=== PATIENT | female | born 1960 | race Caucasian/White ===

== ENCOUNTER → 2016-12-28 | Outpatient (CLI) | payer OTHER | END | disposition home or self-care (01) | LOC: RAD 12:36 | DX: R06.02 Shortness of breath (principal); R07.9 Chest pain, unspecified; R07.81 Pleurodynia; M54.9 Dorsalgia, unspecified; C53.9 Malignant neoplasm of cervix uteri, unspecified; Z87.891 Personal history of nicotine dependence ==

== ENCOUNTER → 2017-05-16 | Day surgery (SDC) | payer OTHER ==
[~2017-05-16] VITALS: Ht 165.1 cm; Wt 67.1 kg
[~2017-05-16] MED LIST: MULTIVITAMINS1 EAC5 PO
--- NOTE | ~2017-05-16 | O ---
[place], [place] OPERATIVE NOTE NAME: ESTRELLITACRISTHIAN UNIT #: [id number] ROOM: DOCTOR: BRETT HOUSER MD BIRTHDATE: [birth year] DOS: 05/16/2017 GASTROENDOSCOPIC REPORT. INDICATIONS: A 57-year-old patient who has presented with chief complaint of colonic screening, undergoing the investigation. The patient with a lung nodule which is under workup for etiology. FAMILY HISTORY: Noncontributory. PAST MEDICAL HISTORY: Anemia, on iron supplementation. PAST SURGICAL HISTORY: Unremarkable. FAMILY HISTORY: Noncontributory. ALLERGIES: CODEINE. PROCEDURE: Today's procedure part of investigation is colonoscopy plus photographic series. PREMEDICATION: Versed and Diprivan. SCOPE: Olympus folding colonoscope 10L video. REPORT: After putting the patient in the left lateral position and after application of lubricant to rectal pouch and digital examination, scope was introduced. Thereafter, under direct visualization, I advanced through the length of colon without difficulty. Base of the cecum explored, appendiceal orifice identified, and ileocecal valve was defined. Diverticulosis of moderate degree in the left side of the colon appreciated. Otherwise, no other acute pathology was found. Air was suctioned out and extubated, tolerated procedure well. IMPRESSION: Diverticulosis; lung nodules, under investigation. PLAN AND DISCUSSION: High fiber diet was recommended, activity Ad kelsie. Followup as an outpatient. Thank you very much again for your kind referral. [place], [place] OPERATIVE NOTE NAME: CRISTHIAN HARO UNIT #: [id number] ROOM: DOCTOR: BRETT HOUSER MD BIRTHDATE: [birth year] BRETT HOUSER MD CM:OPRECORD:OPERATIVE NOTE [id number] LOLA HOUSER MD 05/16/17 1344 interface
[2017-05-16 09:25] VITALS: BP 135/64
[2017-05-16 10:30] VITALS: BP 113/59
[2017-05-16 10:45] VITALS: BP 120/72
[2017-05-16 10:59] VITALS: BP 132/75
== END | disposition home or self-care (01) ==
LOC: SDC 05-10 13:15
DX: Z12.11 Encounter for screening for malignant neoplasm of colon (principal); D64.9 Anemia, unspecified; K57.30 Diverticulosis of large intestine without perforation or abscess without bleeding; R91.8 Other nonspecific abnormal finding of lung field; F41.9 Anxiety disorder, unspecified; F32.9 Major depressive disorder, single episode, unspecified; Z85.41 Personal history of malignant neoplasm of cervix uteri; Z98.890 Other specified postprocedural states; Z88.8 Allergy status to other drugs, medicaments and biological substances

== ENCOUNTER → 2017-11-14 | Outpatient (CLI) | payer OTHER ==
[2017-11-14 12:36] LABS: HEMATOCRIT 37.4 % (37.0-47.0); HEMOGLOBIN 13.2 g/dl (12.0-16.0); MEAN CORPUSCULAR HGB 32.8 pg (27.0-31.0); MEAN CORPUSCULAR HGB CONC 35.3 g/dl (33.0-37.0); MEAN PLATELET VOLUME 9.6 fl (9.6-12.3); RED BLOOD COUNT 4.02 10*6/uL (4.10-5.10); RED CELL DISTRI WIDTH 12.6 % (0-14.5); WHITE BLOOD COUNT 4.2 10*3/uL (4.8-10.8)
[2017-11-14 13:03] LABS: ALBUMIN 3.9 gm/dl (3.1-4.5); ALKALINE PHOSPHATASE 91 U/L (45-117); BUN 23 mg/dl (7-24); CHLORIDE 108 mmol/L (98-107); CHOLESTEROL 181 mg/dL (<200); CREATININE 0.94 mg/dL (0.55-1.02); HDL CHOLESTEROL 76 mg/dl (40-60); LDL CHOLESTEROL 59 mg/dL (9-159); POTASSIUM 3.5 mmol/L (3.5-5.1); SGOT/AST 19 IU/L (3-35); SGPT/ALT 22 U/L (12-78); SODIUM 141 mmol/L (136-145); TOTAL PROTEIN 7.3 gm/dL (6.4-8.2); TRIGLYCERIDES 230 mg/dl (<150); VLDL CHOLESTEROL 46 mg/dL (6-40)
[2017-11-14 13:49] LABS: VITAMIN D, 25-HYDROXY 21.6 ng/mL (30-100)
== END | disposition home or self-care (01) ==
LOC: LAB 12:12
PROVIDERS: Family Medicine
DX: J44.9 Chronic obstructive pulmonary disease, unspecified (principal); E55.9 Vitamin D deficiency, unspecified; R79.89 Other specified abnormal findings of blood chemistry; Z87.891 Personal history of nicotine dependence

== ENCOUNTER → 2017-12-25 | Outpatient (CLI) | payer OTHER ==
[2017-12-25 14:54] LABS: HEMATOCRIT 36.7 % (37.0-47.0); HEMOGLOBIN 12.6 g/dl (12.0-16.0); MEAN CELL VOLUME 95.1 fl (81.0-99.0); MEAN CORPUSCULAR HGB 32.6 pg (27.0-31.0); MEAN CORPUSCULAR HGB CONC 34.3 g/dl (33.0-37.0); MEAN PLATELET VOLUME 10.1 fl (9.6-12.3); RED BLOOD COUNT 3.86 10*6/uL (4.10-5.10); RED CELL DISTRI WIDTH 12.9 % (0-14.5)
[2017-12-25 15:18] LABS: ALBUMIN 4.1 gm/dl (3.1-4.5); ALKALINE PHOSPHATASE 92 U/L (45-117); BUN 13 mg/dl (7-24); CHLORIDE 108 mmol/L (98-107); CREATININE 0.98 mg/dL (0.55-1.02); SGOT/AST 18 IU/L (3-35); SGPT/ALT 14 U/L (12-78); SODIUM 141 mmol/L (136-145); TOTAL PROTEIN 7.2 gm/dL (6.4-8.2)
== END | disposition home or self-care (01) ==
LOC: LAB 14:18
PROVIDERS: Family Medicine
DX: J44.9 Chronic obstructive pulmonary disease, unspecified (principal); D64.9 Anemia, unspecified; R53.83 Other fatigue; Z87.891 Personal history of nicotine dependence

== ENCOUNTER → 2018-03-22 | Outpatient (CLI) | payer OTHER ==
[~2018-03-22] MED LIST changes: +ACYCLOVIR800 MG PO; +ASMANEX HFA13 GM INH; +PREDNISONE20 M1 PO; +QVAR REDIHALE10.6 GM INH
== END | disposition home or self-care (01) ==
LOC: RAD 15:02
DX: R06.02 Shortness of breath (principal); Z87.891 Personal history of nicotine dependence

== ENCOUNTER 2018-04-03 11:41 | Inpatient (IN) | payer OTHER ==
[2018-04-03] VITALS (8 sets, daily range): BP systolic 110–137; BP diastolic 66–75
[~2018-04-03] VITALS: Ht 165.1 cm; Wt 74.9 kg
--- NOTE | ~2018-04-03 | DS ---
[place], [place] DISCHARGE SUMMARY NAME: CRISTHIAN HARO UNIT #: [id number] ROOM: 530 DOCTOR: CHRISTIN LUCERO MD BIRTHDATE: [birth year] DOS: 04/04/2018 HISTORY OF PRESENT ILLNESS: The patient is a 58-year-old female with a past medical history of: 1. Pulmonary nodules. 2. Bronchial asthma/asthmatoid wheezing. 3. Generalized anxiety disorder. 4. History of cancer of the cervix. 5. Major depression, recurrent. HOSPITAL COURSE: The patient presented to the Emergency Department with increased shortness of breath. The patient was ruled out for a pulmonary embolism with CT angiogram. The patient has been complaining of wheezing off and on and says she has history of bronchial asthma. Because of shortness of breath, she was admitted on ER recommendation and a Pulmonary consult was obtained. The patient started on bronchodilators. Pulse ox was monitored and she was evaluated by compliance attorney, Dr. Zheng. Dr. Zheng has recommended followup evaluation of the pulmonary nodules and he has cleared her for discharge to home today since her shortness of breath is improved. There were no signs of pulmonary embolism on CT angiogram and cardiac enzymes were normal, which were performed because of complaints of chest tightness. The patient has no history of coronary artery disease. The patient to be discharged to home on her home medications, which are Arnuity Ellipta inhaler daily and patient is taking Dulera twice a day. Follow up with PCP and Dr. Zheng next week. CHRISTIN LUCERO MD CM:DISCHARG 1933 CHRISTIN LUCERO MD 04/04/18 2100 interface
--- NOTE | ~2018-04-03 | EKG ---
[place], [place] ELECTROCARDIOGRAM REPORT NAME: CRISTHIAN HARO UNIT #: [id number] ROOM: [facility] DOCTOR: GERRI DRAFT REPORT BIRTHDATE: [birth year] [facility] [place] Test Date: 2018-04-03 Test Time: 11:53:48 Pat Name: CRISTHIAN HARO Department: Room: Gender: F X Ray Developer: : 1960 Requested By: THOMAS MOYA Order Number: [id number] Reading MD: Irina Martin MD Measurements Intervals [place] Rate: 67 P: 70 CA: 115 QRS: 73 QRSD: 84 T: 52 QT: 370 QTc: 391 Interpretive Statements Sinus rhythm Borderline short CA interval Consider left ventricular hypertrophy Electronically Signed On 04-08-2018 14:19:09 PDT by Irina Martin MD CM:EKGRPT:ELECTROCARDIOGRAM REPORT 1153 1419 THOMAS TALLEY DRAFT REPORT THOMAS MOYA MD
--- NOTE | ~2018-04-03 | WRIGHTHP ---
[place], [place] PATIENT HISTORY AND PHYSICAL EXAM NAME: CRISTHIAN HARO [facility] #: [id number] UNIT #: [id number] ROOM: 530 DOCTOR: CHRISTIN LUCERO MD BIRTHDATE: [birth year] DOS: 04/03/2018 HISTORY OF PRESENT ILLNESS: The patient is a 58-year-old female who presented to the Emergency Department at [facility] with shortness of breath and chest tightness. The patient is already getting treatment as an outpatient by Dr. Chong with corticosteroids for the shortness of breath. The patient was suspected to have bronchial asthma and she does get wheezing off and on for some years. The patient was evaluated in the Emergency Department and her cardiac enzymes were found to be normal. The patient was recommended for admission for shortness of breath from uncertain etiology and check her cardiac enzymes because of the chest tightness. After admission, the patient is visibly short of breath and tachypneic, but no complaints of chest pains or chest tightness anymore. No dizziness or fainting episode. No GI or urinary symptoms. REVIEW OF SYSTEMS: RESPIRATORY: Complains of shortness of breath and dyspnea on exertion. GASTROINTESTINAL: No nausea, vomiting, diarrhea or constipation. CARDIOVASCULAR: Complains of some chest tightness. FAMILY HISTORY: Noncontributory. SOCIAL HISTORY: The patient smoked for 6 years in the past and she also has history of exposure to secondhand smoke. Denies any alcohol or drug abuse. FAMILY HISTORY: Noncontributory. HOME MEDICATIONS: The patient takes some vitamins at home and she was taking prednisone. PHYSICAL EXAMINATION: GENERAL: Alert, oriented x 3, somewhat short of breath, but in no distress. VITAL SIGNS: Blood pressure 120/70, heart rate of 62 beats per minute, breathing normally, afebrile. HEENT AND NECK: Extraocular movements are intact. Sclerae are anicteric. Oral mucosa is moist and clean. No obvious facial weakness. Neck is supple without any lymphadenopathy. No thyromegaly. No JVD. No carotid arterial bruits. LUNGS: Clear to auscultation. No wheezing. No rhonchi. CARDIOVASCULAR SYSTEM: Heart rate is regular in rate and rhythm. S1 and S2 normally audible. No significant murmur or any other abnormal cardiac sounds. ABDOMEN: Soft, nontender. No obvious organomegaly. Bowel sounds are present. No obvious herniation. EXTREMITIES: Without significant cyanosis or edema. Warm to touch. CENTRAL NERVOUS SYSTEM: Alert and oriented x 3. Cranial nerves II-XII are intact. Speech is normal. The patient is able to move all extremities. Normal muscle strength. Deep tendon reflexes are equal on both sides. Plantars were downgoing. LABORATORY DATA: All cardiac enzymes were negative. CT angiogram of the chest showed no evidence of pulmonary embolism. There were noncalcified 5 mm [place], [place] PATIENT HISTORY AND PHYSICAL EXAM NAME: CRISTHIAN HARO UNIT #: [id number] ROOM: [facility] DOCTOR: CHRISTIN LUCERO MD BIRTHDATE: [birth year] pulmonary nodules in the right upper lung and middle lobe. Potassium level was low at 3.1. IMPRESSION: The patient with shortness of breath from uncertain etiology, but she does have history of exposure to secondhand smoke and smoking herself for 6 years. The patient with asthmatoid wheezing and possible acute exacerbation of chronic obstructive pulmonary disease. I am consulting Dr. Zheng to see her and keep her on bronchodilators. The patient says that she reacted adversely to of prednisone she was receiving as an outpatient, so it has been stopped. Complains of chest tightness, but cardiac enzymes were all negative. The patient is asymptomatic now. The patient kept on a manager monitoring. Vital signs are staying normal. CHRISTIN LUCERO MD CM:HISPHYS:PATIENT HISTORY AND PHYSICAL EXAMINATION 99 32 CHRISTIN LUCERO MD 04/03/182030 interface
--- NOTE | ~2018-04-03 | CON ---
[place], [place] REPORT OF CONSULTATION [id number] UNIT #: [id number] ROOM: 530 DOCTOR: LISSA BALBUENA MD BIRTHDATE: [birth year] DOS: 04/04/2018 PULMONARY CONSULTATION, EVALUATION AND MANAGEMENT CONSULTATION REQUESTED BY: Dr. Luciano. REASON FOR CONSULTATION: For assessment of current symptoms of shortness of breath. HISTORY OF PRESENT ILLNESS: As follows: The patient was independently seen and examined, [id number] encounter, history was confirmed for the patient. Physical examination performed. All the labs were reviewed. Assessment and management of the patient today's visit were personally completed. The recommendations were personally made for this patient's management as ordered. This is a 58-year-old white female patient, who has been known with past medical history of cancer of the endocervix. The patient has been managed by the Oncology service with conization procedure. She received chemotherapy in 2018 in [place], [place]. She was seen in my office for assessment of symptoms of shortness of breath on 02/26/2018. She has been diagnosed with evidence of bronchial asthma. The patient started on the medical management for the bronchial asthma. She has been also reported with history of pulmonary nodule. The patient's CT scan of the chest was ordered from the Medical Oncology, but never received. She presented to the hospital for assessment of symptoms of shortness of breath, the patient has some chest tightness. She does have symptoms of mild hoarseness as well, which has been noted previously, unchanged secondary to left vocal cord paralysis. The patient was reported symptoms of wheezing intermittently as well. She presented to the hospital for current assessment of symptoms. The patient has been prescribed corticosteroid by the patient's primary care physician and did not respond to the treatment. REVIEW OF SYSTEMS: CONSTITUTIONAL: She denies symptoms of fever or chills. Complains of mild fatigue. EYES: Denies burning, redness or discharge. EARS, NOSE AND THROAT: Denies sore throat, hoarseness, otalgia, postnasal drainage or epistaxis. CARDIOVASCULAR: Denies symptoms of palpitation, edema or pain of lower extremities or anginal pain. GASTROINTESTINAL: Denies dysphagia, nausea, vomiting, diarrhea, abdominal pain, hematemesis, melena, or hematochezia. SKIN: Denies any abnormal lesions or rashes. CENTRAL NERVOUS SYSTEM: No dizziness, headache, diplopia, syncopal episodes. Remaining systems were reviewed. They were noted all negative. PAST MEDICAL HISTORY: 1. Neurotic depression. 2. Cancer of the cervix diagnosed in 2016, treated with surgery and chemotherapy. [place], [place] REPORT OF CONSULTATION NAME: CRISTHIAN HARO UNIT #: [id number] ROOM: [facility] DOCTOR: RADHA BALBUENA MDM BIRTHDATE: [birth year] 3. Bilateral pulmonary nodules per the patient's report in 2016. 4. Left vocal cord paralysis in 2016, treated with augmentation therapy at [facility]. 5. Bronchial asthma diagnosed for the patient as uncomplicated, severe persistent severity in 02/26/2018. SOCIAL HISTORY: The patient is , has 2 children, lives at home. Tobacco use was noted from age [age] years old, half a pack of cigarettes per day until 1985. PAST SURGICAL HISTORY: Noted, 1. Conization procedure of the cervix. 2. Augmentation of vocal cord procedure in [facility] in 2016. FAMILY HISTORY: The patient's father at the age of 80 years from complication of coronary artery disease. Mother is living, 89 years old with history of COPD. CURRENT MEDICATIONS: Administered were noted use of DuoNeb every 4 hours. DRUG ALLERGIES: ALLERGY TO, 1. CODEINE. 2. ALOXI. PHYSICAL EXAMINATION: GENERAL: A 58-year-old white female currently noted comfortable without any acute distress. Height of 5 feet 5 inches, weight of 165 pounds, BUN 27.4. VITAL SIGNS: For the patient which are recorded showed normal temperature, respiratory rate 17-20, heart rate of 85-64. The blood pressure 116/61-103/65. Pulse oxygen saturation on room air was 100% saturation. HEENT: Head was atraumatic. Eye nonicterus. NECK: Supple. CARDIOVASCULAR: S1, S2 is audible. LUNGS: The patient noted clear to auscultation bilaterally. ABDOMEN: Soft, nontender, bowel sounds present. EXTREMITIES: Without any acute edema. VISIBLE SKIN: No lesions or rashes. CENTRAL NERVOUS SYSTEM: Cranial nerves 2-12 intact. MUSCULOSKELETAL: No deformities. LABORATORY DATA: The patient's PT, PTT yesterday noted normal. CBC done yesterday, WBC count 10.9, remaining CBC is normal. CMP on admission, BUN normal, creatinine 1.07. Potassium 3.1. The troponin for the patient that was done yesterday and this morning normal. The chest x-ray one-view did not show any acute pulmonary infiltration. CT of the chest for the patient noted with 4-5 mm nodule noted in the right upper lobe as well as the right middle lobe as stated by the radiologist were personally confirmed. There were no additional abnormal findings noted. There was no lymphadenopathy, pleural fluids or interstitial lung disease findings. [place], [place] REPORT OF CONSULTATION NAME: CRISTHIAN HARO UNIT #: [id number] ROOM: 530 DOCTOR: JASPER VALENZUELA MD,LISSA BIRTHDATE: [birth year] IMPRESSION: 1. The patient came into the office with symptoms of shortness of breath, may be related due to chronic vocal cord dysfunction with idiopathic paralysis with augmentation treatment. 2. History of bronchial asthma, does not seem to have an acute exacerbation. At present time ongoing care of the lungs. 3. Rule out cardiac etiology of shortness of breath. 4. Possible consideration of shortness of breath may be related to underlying anxiety disorder cannot be completely excluded. 5. Pulmonary nodule 5 mm upper right middle lobe with past history of cervical cancer. At this time, no evidence of malignant process, already treated with chemotherapy, radiation therapy for the cancer of the cervix in 2016. PLAN OF THERAPY: The patient has been getting bronchodilators that will be continued. Cardiology consultation will be obtained. Current pulmonary nodule, the patient does not require any additional acute assessment for this patient at the present time. Monitoring will be done as an outpatient pulmonary nodule, followup CT scan of the patient if possible in 6 months. Continue abstinence of the tobacco use. Continue management component for this patient as well. The patient will be started on Dulera at this time for the long-term management of bronchial asthma. If the patient gets the Cardiology clearance on the pulmonary standpoint, may be discharged home, to be further followed up in outpatient for the continued management of bronchial asthma. Thanks for allowing me to participate in the care of this patient. LISSA HUTCHINSON MD CM:CONSTR:REPORT OF CONSULTATION 1221 04/04/18 1332 interface
--- NOTE | ~2018-04-03 | CON ---
[place], [place] REPORT OF CONSULTATION NAME: CRISTHIAN HARO UNIT #: [id number] ROOM: 530 DOCTOR: FRANCHESKA FLEMING DO BIRTHDATE: [birth year] DOS: 04/04/2018 CONSULT REQUESTED BY: Dr. Luciano. REASON FOR CONSULTATION: Shortness of breath. HISTORY OF PRESENT ILLNESS: The patient presented to the Emergency Room yesterday after helping her mother. She states that she has had on and off shortness of breath and wheezing. It became persistent, so she sought evaluation. In the ED, she refused EKG. Troponins were cycled and were negative. She states that she follows with Dr. Chong and was started on prednisone for her respiratory symptoms. At that time, she had stopped taking her Qvar and Asmanex. She denies any lightheadedness, double vision, chest pain, cough, nausea, vomiting, diarrhea, hemoptysis, hematemesis, melena or hematochezia. She denies any lower extremity edema. She had presented as an outpatient to the office on 02/26/2018. At that time, she was diagnosed of bronchial asthma. REVIEW OF SYSTEMS: CONSTITUTIONAL: Denies any fevers, chills, fatigue. EYES: Denies burning, redness or discharge. EARS, NOSE AND THROAT: Denies sore throat, hoarseness, otalgia, postnasal drainage or epistaxis. CARDIOVASCULAR: Denies any palpitations, edema, chest pain or pain in the lower extremities. RESPIRATORY: Admits to shortness of breath. Denies cough, denies sputum production. GASTROINTESTINAL: Denies dysphagia, nausea, vomiting, diarrhea, abdominal pain, hematemesis, melena or hematochezia. SKIN: Denies any abnormal lesions or rashes. CENTRAL NERVOUS SYSTEM: No dizziness, headaches, diplopia or syncopal episodes. EXTREMITIES: Denies any acute pain or deformities. PAST MEDICAL HISTORY: 1. Depression. 2. Cervical cancer diagnosed in 2016, treated with surgery and chemotherapy. 3. Bilateral pulmonary nodules in 2016. Noncalcified 5 mm pulmonary nodules in right upper lobe and right middle lobe were seen on CAT scan this visit. 4. Left vocal cord paralysis in 2016. 5. Bronchial asthma diagnosed 02/26/2018 as complicated, severe, persistent. SOCIAL HISTORY: The patient is a former smoker. Smoked 1 pack per day from age 21 until 1985. Denies alcohol. Denies illicit drug use. PAST SURGICAL HISTORY: Conization of the cervix, hysteroscopy, D and C, colonoscopy, augmentation of the vocal cord, procedure performed at the [facility] in 2017. FAMILY HISTORY: Her father is at age 80 from coronary artery disease. Her mother is living. She is 89 years old with a history of COPD and AFib. Her [place], [place] REPORT OF CONSULTATION NAME: CRISTHIAN HARO UNIT #: [id number] ROOM: [facility] DOCTOR: FRANCHESKA FLEMING DO BIRTHDATE: [birth year] maternal aunt is from lung cancer. MEDICATIONS: Taking Asmanex and Qvar at home. Currently, using DuoNebs every 4 hours. ALLERGIES: CODEINE and . PHYSICAL EXAMINATION: GENERAL: The patient is alert and oriented, mild distress due to shortness of breath. VITAL SIGNS: Temperature 97.9, heart rate 92, respiratory rate 18, blood pressure 110/58, pulse ox 100% on room air. HEENT: Head is atraumatic. Eyes nonicteric. NECK: Supple. CARDIOVASCULAR: S1, S2 audible. LUNGS: Clear to auscultation bilaterally. No wheezing, rhonchi or rales. ABDOMEN: Soft, nontender, nondistended, bowel sounds present. EXTREMITIES: No acute edema. VISIBLE SKIN: No lesions or rashes. CENTRAL NERVOUS SYSTEM: Cranial nerves 2-12 grossly intact. MUSCULOSKELETAL: No acute deformities. LABORATORY DATA: CBC from 04/03/2018, WBCs 10.9, hemoglobin 13.4, hematocrit 38.4, platelet count 225,000. CMP from 04/03/2018, sodium 144, potassium 3.1, chloride 111, CO2 of 21, BUN 19, creatinine 1.07, LFTs normal. Troponin was cycled and negative x 3. CTA was performed which showed no pulmonary embolism, noncalcified 5 mm pulmonary nodules in right upper lobe and right middle lobe. No effusions or interstitial process noted. IMPRESSION: 1. Acute shortness of breath. Differential includes chronic vocal cord dysfunction with idiopathic paralysis or possible cardiac etiology. 2. History of bronchial asthma. 3. Possible anxiety disorder. 4. Pulmonary nodule. PLAN OF THERAPY: Continue bronchodilators. Dulera has been started. Continue home Qvar and Asmanex. Cardiology workup recommended. The patient may follow up as an outpatient for continued management of pulmonary nodules and bronchial asthma. Continue abstinence from smoking. If cardiac etiology is ruled out, the patient may be discharged from a pulmonary standpoint. Francheska Fleming DO [place], [place] REPORT OF CONSULTATION NAME: ESTRELLITACRISTHIAN A UNIT #: [id number] ROOM: [facility] DOCTOR: FRANCHESKA FLEMING DO BIRTHDATE: [birth year] LISSA HUTCHINSON MD CM:CONSTR:REPORT OF CONSULTATION 1443 04/05/18 0343 interface
--- NOTE | ~2018-04-03 | EKG ---
[place], [place] ELECTROCARDIOGRAM REPORT NAME: CRISTHIAN HARO UNIT #: [id number] ROOM: [facility] DOCTOR: GERRI DRAFT REPORT BIRTHDATE: [birth year] [facility] Test Date: 2018-04-03 Test Time: 17:12:19 Pat Name: CRISTHIAN HARO Department: Room: Gender: F Acquisitions Editor: : 1960 Requested By: THOMAS MOYA Order Number: [id number] Reading MD: Irina Martin MD Measurements Intervals [place] Rate: 55 P: 65 [place]: 123 QRS: 66 QRSD: 96 T: 47 QT: 442 QTc: 423 Interpretive Statements Sinus rhythm Normal ECG Electronically Signed On 04-08-2018 14:25:42 PDT by Irina Martin MD CM:EKGRPT:ELECTROCARDIOGRAM REPORT 1712 1425 THOMAS TALLEY DRAFT REPORT THOMAS MOYA MD
[~2018-04-03 11:41] MED LIST changes: -ACYCLOVIR800 MG PO; -ASMANEX HFA13 GM INH; -PREDNISONE20 M1 PO; -QVAR REDIHALE10.6 GM INH
[2018-04-03] MEDS ORDERED: PREDNISONE20 M1 PO (11:53)
[2018-04-03 12:08] LABS: BASO % 0.2 % (0.0-1.0); HEMATOCRIT 38.4 % (37.0-47.0); HEMOGLOBIN 13.4 g/dl (12.0-16.0); LYMPH # 0.8 10*3/uL (1.3-4.4); LYMPH % 7.6 % (27.0-41.0); MEAN CELL VOLUME 93.2 fl (81.0-99.0); MEAN CORPUSCULAR HGB 32.5 pg (27.0-31.0); MEAN CORPUSCULAR HGB CONC 34.9 g/dl (33.0-37.0); MEAN PLATELET VOLUME 9.6 fl (9.6-12.3); MONO # 0.7 10*3/uL (0.1-1.0); MONO % 6.3 % (3.0-9.0); NEUT # 9.2 10*3/uL (2.3-7.9); NEUT % 85.2 % (47.0-73.0); PLATELET COUNT AUTOMATED 225 10*3/uL (130-400); RED BLOOD COUNT 4.12 10*6/uL (4.10-5.10); RED CELL DISTRI WIDTH 12.7 % (0-14.5); WHITE BLOOD COUNT 10.9 10*3/uL (4.8-10.8)
[2018-04-03 12:16] LABS: ACT PARTIAL THROMBO TIME 18.1 SECONDS (20.8-31.5); INTERNATIONAL NORM RATIO 0.9 (2.0-3.5)
[2018-04-03 12:24] LABS: ALKALINE PHOSPHATASE 77 U/L (45-117); BUN 19 mg/dl (7-24); CHLORIDE 111 mmol/L (98-107); CREATININE 1.07 mg/dL (0.55-1.02); POTASSIUM 3.1 mmol/L (3.5-5.1); SGOT/AST 8 IU/L (3-35); SGPT/ALT 14 U/L (12-78); SODIUM 144 mmol/L (136-145); TOTAL PROTEIN 7.2 gm/dL (6.4-8.2)
[2018-04-03 12:32] LABS: TROPONIN I < 0.015 ng/ml (<0.045)
[2018-04-04] VITALS: BP 103/65
[2018-04-04 08:00] VITALS: BP 116/61
[2018-04-04] MEDS ORDERED: QVAR REDIHALE10.6 GM INH (11:26)
[2018-04-04] MEDS ORDERED: ASMANEX HFA13 GM INH (11:27)
[2018-04-04 12:00] VITALS: BP 110/58
[2018-04-04 16:00] VITALS: BP 124/94
[2018-05-05] MEDS ORDERED: ACYCLOVIR800 MG PO (19:17)
== END 2018-04-04 20:00 | disposition home or self-care (01) | DRG 204 ==
LOC: ED 11:41 → 5E 16:31 → EDHOLD 16:31 → 5E 18:11
PROVIDERS: Emergency Medicine
DX: R06.02 Shortness of breath (principal); F33.9 Major depressive disorder, recurrent, unspecified; R91.1 Solitary pulmonary nodule; F41.1 Generalized anxiety disorder; J45.909 Unspecified asthma, uncomplicated; R07.89 Other chest pain; Z85.41 Personal history of malignant neoplasm of cervix uteri; Z88.5 Allergy status to narcotic agent; Z88.8 Allergy status to other drugs, medicaments and biological substances; Z79.899 Other long term (current) drug therapy; Z82.49 Family history of ischemic heart disease and other diseases of the circulatory system; Z83.6 Family history of other diseases of the respiratory system; Z80.1 Family history of malignant neoplasm of trachea, bronchus and lung

== ENCOUNTER → 2018-05-16 | Outpatient (CLI) | payer OTHER ==
[~2018-05-16] MED LIST changes: +ACYCLOVIR800 MG PO; +ASMANEX HFA13 GM INH; +PREDNISONE20 M1 PO; +QVAR REDIHALE10.6 GM INH
== END | disposition home or self-care (01) ==
LOC: CARD 12:53
DX: I08.1 Rheumatic disorders of both mitral and tricuspid valves (principal); R06.02 Shortness of breath

== ENCOUNTER → 2018-07-19 | Outpatient (CLI) | payer MEDICARE, MEDICAID ==
[2018-07-19 14:10] LABS: ALKALINE PHOSPHATASE 90 U/L (45-117); BUN 14 mg/dl (7-24); CHLORIDE 110 mmol/L (98-107); CHOLESTEROL 176 mg/dL (<200); CREATININE 1.05 mg/dL (0.55-1.02); HDL CHOLESTEROL 74 mg/dl (40-60); LDL CHOLESTEROL 78 mg/dL (9-159); POTASSIUM 3.6 mmol/L (3.5-5.1); SGOT/AST 20 IU/L (3-35); SGPT/ALT 17 U/L (12-78); SODIUM 142 mmol/L (136-145); TOTAL PROTEIN 7.1 gm/dL (6.4-8.2); TRIGLYCERIDES 120 mg/dl (<150); VLDL CHOLESTEROL 24 mg/dL (6-40)
[2018-07-19 14:21] LABS: HEMATOCRIT 37.1 % (37.0-47.0); MEAN CELL VOLUME 93.5 fl (81.0-99.0); MEAN CORPUSCULAR HGB 32.7 pg (27.0-31.0); MEAN PLATELET VOLUME 10.1 fl (9.6-12.3); RED BLOOD COUNT 3.97 10*6/uL (4.10-5.10); WHITE BLOOD COUNT 5.7 10*3/uL (4.8-10.8)
== END | disposition home or self-care (01) ==
LOC: LAB 13:10
PROVIDERS: Family Medicine
DX: E78.00 Pure hypercholesterolemia, unspecified (principal); J44.9 Chronic obstructive pulmonary disease, unspecified; E55.9 Vitamin D deficiency, unspecified; R06.02 Shortness of breath

== ENCOUNTER → 2018-09-18 | Outpatient (CLI) | payer MEDICARE, MEDICAID ==
[2018-09-18 15:00] LABS: BASO % 0.7 % (0.0-1.0); EOS # 0.2 10*3/uL (0.0-0.4); EOS % 5.2 % (1.0-4.0); HEMATOCRIT 37.6 % (37.0-47.0); HEMOGLOBIN 12.9 g/dl (12.0-16.0); LYMPH # 1.2 10*3/uL (1.3-4.4); LYMPH % 26.6 % (27.0-41.0); MEAN CELL VOLUME 92.6 fl (81.0-99.0); MEAN CORPUSCULAR HGB 31.8 pg (27.0-31.0); MEAN CORPUSCULAR HGB CONC 34.3 g/dl (33.0-37.0); MEAN PLATELET VOLUME 9.8 fl (9.6-12.3); MONO # 0.3 10*3/uL (0.1-1.0); MONO % 6.6 % (3.0-9.0); NEUT # 2.7 10*3/uL (2.3-7.9); NEUT % 60.7 % (47.0-73.0); PLATELET COUNT AUTOMATED 217 10*3/uL (130-400); RED BLOOD COUNT 4.06 10*6/uL (4.10-5.10); RED CELL DISTRI WIDTH 12.3 % (0-14.5); WHITE BLOOD COUNT 4.4 10*3/uL (4.8-10.8)
== END | disposition home or self-care (01) ==
LOC: LAB 14:34
PROVIDERS: Internal Medicine Critical Care Medicine
DX: Z79.899 Other long term (current) drug therapy (principal)

== ENCOUNTER → 2018-11-07 | Outpatient (CLI) | payer MEDICARE, MEDICAID ==
[2018-11-07 10:52] LABS: BASO # 0.1 10*3/uL (0.0-0.1); BASO % 1.2 % (0.0-1.0); EOS # 0.2 10*3/uL (0.0-0.4); EOS % 4.6 % (1.0-4.0); HEMATOCRIT 37.4 % (37.0-47.0); HEMOGLOBIN 13.2 g/dl (12.0-16.0); LYMPH % 24.9 % (27.0-41.0); MEAN CELL VOLUME 93.3 fl (81.0-99.0); MEAN CORPUSCULAR HGB 32.9 pg (27.0-31.0); MEAN CORPUSCULAR HGB CONC 35.3 g/dl (33.0-37.0); MEAN PLATELET VOLUME 9.8 fl (9.6-12.3); MONO # 0.3 10*3/uL (0.1-1.0); MONO % 6.8 % (3.0-9.0); NEUT # 2.6 10*3/uL (2.3-7.9); NEUT % 62.3 % (47.0-73.0); PLATELET COUNT AUTOMATED 231 10*3/uL (130-400); RED BLOOD COUNT 4.01 10*6/uL (4.10-5.10); RED CELL DISTRI WIDTH 12.8 % (0-14.5); WHITE BLOOD COUNT 4.1 10*3/uL (4.8-10.8)
[2018-11-07 11:19] LABS: ALBUMIN 3.6 gm/dl (3.1-4.5); BUN 22 mg/dl (7-24); CHLORIDE 111 mmol/L (98-107); POTASSIUM 3.9 mmol/L (3.5-5.1); SGOT/AST 19 IU/L (3-35); SGPT/ALT 19 U/L (12-78); SODIUM 142 mmol/L (136-145)
[2018-11-07 11:23] LABS: ALKALINE PHOSPHATASE 86 U/L (45-117); CHOLESTEROL 189 mg/dL (<200); CREATININE 1.12 mg/dL (0.55-1.02); HDL CHOLESTEROL 83 mg/dl (40-60); IRON 142 ug/dL (50-170); LDL CHOLESTEROL 87 mg/dL (9-159); TRIGLYCERIDES 95 mg/dl (<150); VLDL CHOLESTEROL 19 mg/dL (6-40)
[2018-11-07 11:42] LABS: VITAMIN D, 25-HYDROXY 38.7 ng/mL (30-100)
== END | disposition home or self-care (01) ==
LOC: LAB 10:13
PROVIDERS: Family Medicine
DX: E55.9 Vitamin D deficiency, unspecified (principal); D64.9 Anemia, unspecified; E78.00 Pure hypercholesterolemia, unspecified; R53.83 Other fatigue

== ENCOUNTER → 2018-11-12 | Outpatient (CLI) | payer MEDICARE, MEDICAID | END | disposition home or self-care (01) | LOC: RAD 12:55 | DX: R91.8 Other nonspecific abnormal finding of lung field (principal); J45.909 Unspecified asthma, uncomplicated; Z87.891 Personal history of nicotine dependence; Z85.41 Personal history of malignant neoplasm of cervix uteri ==

== ENCOUNTER → 2019-09-15 | Outpatient (CLI) | payer OTHER, MEDICAID | END | disposition home or self-care (01) | LOC: RAD 12:15 | DX: M25.512 Pain in left shoulder (principal) ==

== ENCOUNTER → 2019-11-14 | Outpatient (CLI) | payer MEDICARE | LOC: MRI 12:09 | DX: M19.012 Primary osteoarthritis, left shoulder (principal); M75.52 Bursitis of left shoulder ==

== ENCOUNTER → 2020-10-07 | Outpatient (CLI) | payer OTHER ==
[2020-10-07 14:46] LABS: MEAN CELL VOLUME 93.8 fl (81.0-99.0); MEAN CORPUSCULAR HGB CONC 33.1 g/dl (33.0-37.0); MEAN PLATELET VOLUME 9.5 fl (9.6-12.3); RED BLOOD COUNT 4.48 10*6/uL (4.10-5.10); RED CELL DISTRI WIDTH 13.1 % (0-14.5)
[2020-10-07 15:18] LABS: CREATININE 1.15 mg/dL (0.55-1.02); POTASSIUM 3.8 mmol/L (3.5-5.1); TOTAL PROTEIN 7.4 gm/dL (6.4-8.2)
== END | disposition home or self-care (01) ==
LOC: LAB 14:18
PROVIDERS: ATTEND Family Medicine
DX: E78.00 Pure hypercholesterolemia, unspecified (principal); R06.02 Shortness of breath; R53.83 Other fatigue; E55.9 Vitamin D deficiency, unspecified; D64.9 Anemia, unspecified

== ENCOUNTER → 2021-03-21 | Outpatient (CLI) | payer OTHER | END | disposition home or self-care (01) | LOC: MAMMO 03-10 10:30 | PROVIDERS: ATTEND Nurse Practitioner Family | DX: Z12.31 Encounter for screening mammogram for malignant neoplasm of breast (principal) ==

== ENCOUNTER → 2021-12-19 | Outpatient (CLI) | payer OTHER ==
[2021-12-19 11:02] LABS: MEAN CELL VOLUME 91.3 fl (81.0-99.0); MEAN CORPUSCULAR HGB 31.9 pg (27.0-31.0); MEAN CORPUSCULAR HGB CONC 34.9 g/dl (33.0-37.0); MEAN PLATELET VOLUME 9.1 fl (9.6-12.3); RED BLOOD COUNT 4.27 10*6/uL (4.10-5.10); RED CELL DISTRI WIDTH 13.1 % (0-14.5); WHITE BLOOD COUNT 4.8 10*3/uL (4.8-10.8)
[2021-12-19 11:42] LABS: ALKALINE PHOSPHATASE 92 U/L (45-117); BUN 12 mg/dl (7-24); CHLORIDE 112 mmol/L (98-107); CHOLESTEROL 189 mg/dL (<200); CREATININE 1.02 mg/dL (0.55-1.02); LDL CHOLESTEROL 89 mg/dL (9-159); POTASSIUM 4.1 mmol/L (3.5-5.1); SGOT/AST 20 IU/L (3-35); SODIUM 141 mmol/L (136-145); TOTAL PROTEIN 7.1 gm/dL (6.4-8.2); TRIGLYCERIDES 78 mg/dl (<150)
[2021-12-19 11:44] LABS: SGPT/ALT 17 U/L (12-78)
[2021-12-19 12:06] LABS: VITAMIN D, 25-HYDROXY 20.6 ng/mL (30-100)
== END | disposition home or self-care (01) ==
LOC: LAB 10:39
PROVIDERS: ATTEND Family Medicine
DX: E55.9 Vitamin D deficiency, unspecified (principal); R53.83 Other fatigue; G47.00 Insomnia, unspecified; Z00.00 Encounter for general adult medical examination without abnormal findings; Z79.899 Other long term (current) drug therapy

== ENCOUNTER → 2022-11-30 | Outpatient (CLI) | payer OTHER ==
[2022-11-30 12:51] LABS: HEMATOCRIT 40.4 % (37.0-47.0); MEAN CELL VOLUME 94.4 fl (81.0-99.0); MEAN CORPUSCULAR HGB 31.5 pg (27.0-31.0); MEAN CORPUSCULAR HGB CONC 33.4 g/dl (33.0-37.0); MEAN PLATELET VOLUME 9.4 fl (9.6-12.3); RED BLOOD COUNT 4.28 10*6/uL (4.10-5.10); RED CELL DISTRI WIDTH 12.6 % (0-14.5); WHITE BLOOD COUNT 5.5 10*3/uL (4.8-10.8)
[2022-11-30 13:48] LABS: ALKALINE PHOSPHATASE 83 U/L (46-116); BUN 13 mg/dl (9-23); CHLORIDE 109 mmol/L (98-107); CHOLESTEROL 190 mg/dL (<200); LDL CHOLESTEROL 97 mg/dL (9-159); POTASSIUM 3.9 mmol/L (3.4-5.1); TOTAL PROTEIN 6.7 gm/dL (6.0-8.0); TRIGLYCERIDES 91 mg/dl (<150)
[2022-11-30 13:50] LABS: SGPT/ALT < 7 U/L (10-49)
[2022-11-30 13:52] LABS: VITAMIN D, 25-HYDROXY 22.4 ng/mL (30-100)
== END | disposition home or self-care (01) ==
LOC: LAB 12:31
PROVIDERS: ATTEND Family Medicine
DX: Z13.220 Encounter for screening for lipoid disorders (principal); J45.909 Unspecified asthma, uncomplicated; E74.00 Glycogen storage disease, unspecified; F41.1 Generalized anxiety disorder; E55.9 Vitamin D deficiency, unspecified; R53.83 Other fatigue; Z79.899 Other long term (current) drug therapy

== ENCOUNTER → 2023-04-12 | Outpatient (CLI) | payer OTHER ==
[2023-04-12 12:53] LABS: HEMATOCRIT 37.8 % (37.0-47.0); MEAN CELL VOLUME 92.4 fl (81.0-99.0); MEAN CORPUSCULAR HGB 31.8 pg (27.0-31.0); MEAN CORPUSCULAR HGB CONC 34.4 g/dl (33.0-37.0); MEAN PLATELET VOLUME 10.1 fl (9.6-12.3); RED BLOOD COUNT 4.09 10*6/uL (4.10-5.10); RED CELL DISTRI WIDTH 12.7 % (0-14.5)
[2023-04-12 13:18] LABS: ALKALINE PHOSPHATASE 91 U/L (46-116); BUN 14 mg/dl (9-23); CHLORIDE 108 mmol/L (98-107); CHOLESTEROL 172 mg/dL (<200); LDL CHOLESTEROL 76 mg/dL (9-159); POTASSIUM 4.1 mmol/L (3.4-5.1); SGPT/ALT 8 U/L (10-49); TOTAL PROTEIN 6.6 gm/dL (6.0-8.0); TRIGLYCERIDES 96 mg/dl (<150)
[2023-04-12 13:22] LABS: VITAMIN D, 25-HYDROXY 28.8 ng/mL (30-100)
== END | disposition home or self-care (01) ==
LOC: LAB 11:56
PROVIDERS: ATTEND Family Medicine
DX: E55.9 Vitamin D deficiency, unspecified (principal); R53.83 Other fatigue; Z00.00 Encounter for general adult medical examination without abnormal findings; Z13.6 Encounter for screening for cardiovascular disorders

== ENCOUNTER → 2023-09-14 | Outpatient (CLI) | payer OTHER | END | disposition home or self-care (01) | LOC: RAD 09:47 | PROVIDERS: ATTEND Family Medicine | DX: R91.8 Other nonspecific abnormal finding of lung field (principal); R05.9 Cough, unspecified; R07.9 Chest pain, unspecified ==

== ENCOUNTER → 2023-10-30 | Outpatient (CLI) | payer OTHER | END | disposition home or self-care (01) | LOC: MAMMO 09-25 16:30 → US 09-25 16:30 → MAMMO 15:30 | PROVIDERS: ATTEND Family Medicine | DX: Z12.31 Encounter for screening mammogram for malignant neoplasm of breast (principal); E27.9 Disorder of adrenal gland, unspecified; N64.89 Other specified disorders of breast ==

== ENCOUNTER → 2024-06-03 | Outpatient (CLI) | payer OTHER | END | disposition home or self-care (01) | LOC: RAD 15:25 | PROVIDERS: ATTEND Family Medicine | DX: M19.011 Primary osteoarthritis, right shoulder (principal) ==

== ENCOUNTER → 2024-07-11 | Outpatient (CLI) | payer OTHER | END | disposition home or self-care (01) | LOC: RAD 06-23 13:30 | PROVIDERS: ATTEND Family Medicine | DX: Z13.820 Encounter for screening for osteoporosis (principal); M81.0 Age-related osteoporosis without current pathological fracture; Z78.0 Asymptomatic menopausal state ==

== ENCOUNTER → 2024-09-16 | Outpatient (CLI) | payer OTHER ==
[2024-09-16 15:22] LABS: HEMATOCRIT 41.9 % (37.0-47.0); MEAN CELL VOLUME 91.1 fl (81.0-99.0); MEAN CORPUSCULAR HGB 31.7 pg (27.0-31.0); MEAN CORPUSCULAR HGB CONC 34.8 g/dl (33.0-37.0); MEAN PLATELET VOLUME 9.6 fl (9.6-12.3); RED BLOOD COUNT 4.6 10*6/uL (4.10-5.10); RED CELL DISTRI WIDTH 12.4 % (0-14.5); WHITE BLOOD COUNT 7.1 10*3/uL (4.8-10.8)
[2024-09-16 15:51] LABS: ALKALINE PHOSPHATASE 87 U/L (46-116); BUN 14 mg/dl (9-23); CHLORIDE 107 mmol/L (98-107); CHOLESTEROL 184 mg/dL (<200); FREE T4 1.14 ng/dl (0.89-1.76); LDL CHOLESTEROL 91 mg/dL (9-159); POTASSIUM 4.2 mmol/L (3.4-5.1); SGPT/ALT 8 U/L (5-49); TOTAL PROTEIN 7.5 gm/dL (6.0-8.0); TRIGLYCERIDES 160 mg/dl (<150)
[2024-09-16 15:53] LABS: VITAMIN D, 25-HYDROXY 30.9 ng/mL (30-100)
== END | disposition home or self-care (01) ==
LOC: LAB 14:59
PROVIDERS: ATTEND Family Medicine
DX: R53.83 Other fatigue (principal); E55.9 Vitamin D deficiency, unspecified; E74.9 Disorder of carbohydrate metabolism, unspecified; E53.8 Deficiency of other specified B group vitamins; R63.5 Abnormal weight gain; Z79.899 Other long term (current) drug therapy

== ENCOUNTER → 2025-08-10 | Outpatient (CLI) | payer OTHER ==
[2025-08-10 13:36] LABS: MEAN CELL VOLUME 92.5 fl (81.0-99.0); MEAN CORPUSCULAR HGB 31.6 pg (27.0-31.0); MEAN PLATELET VOLUME 9.4 fl (9.6-12.3); NUCLEATED RED BLOOD CELL 0.0 % (0.0-0.0); NUCLEATED RED BLOOD CELL 0.0 10*3/uL (0.0-0.0); PLATELET COUNT AUTOMATED 272.0 10*3/uL (130-400); RED CELL DISTRI WIDTH 12.6 % (0-14.5)
[2025-08-10 14:48] LABS: BUN 19 mg/dl (9-23); LDL CHOLESTEROL 124 mg/dL (9-159)
[2025-08-10 14:50] LABS: SGPT/ALT < 7 U/L (5-49)
== END | disposition home or self-care (01) ==
LOC: LAB 13:12
PROVIDERS: ATTEND Family Medicine
DX: E78.00 Pure hypercholesterolemia, unspecified (principal); J44.9 Chronic obstructive pulmonary disease, unspecified; R60.9 Edema, unspecified